=== PATIENT | female | born 1995 | race Two or more races ===

== ENCOUNTER 2025-02-19 15:53 | Observation (INO) | payer OTHER ==
[2025-02-19] MEDS ORDERED: PREN-96 PO (16:26)
--- NOTE | 2025-02-21 15:47 | DVHDS2 ---
Physician Discharge Progress N Final Diagnosis: abd pain 21wks Operations or Procedures: Operations or Procedures sono , Condition on Discharge: Good Disposition: Home Discharge Instructions: Diet: Regular Activity: Light activity Medications: na Follow Up Care: Specialist: 1w Discharge Statement: "Patient was advised to return to the ER or call 911 if any headaches, dizzin ess, shortness of breath, chest pain, abdominal pain, bleeding, fevers, or worsening of medical condition. Patient was counseled about treatment plan, medications, possible side effects, patientverbalized understanding. All questions were answered to the best of my ability. This discharge took greater then 30 minutes in planning, reviewing documentation, counseling the patient, and discussing with other team members." Visit Coding OBGYN Date of Service: Feb 19, 2025 Billing Provider: NOREEN STROUD DO FLOOR WORKER WELL SERVICE Common Visit Codes: [id number] OBS CARE (HIGH) FLOOR WORKER WELL SERVICE Procedure Codes: 48449-32- NON-STRESS TEST NOREEN STROUD DO Feb 21, 2025 15:47
== END 2025-02-19 16:51 | disposition home or self-care (01) ==
LOC: LDRP 15:53 → UNDOADMOB 15:53 → LDRP 16:04 → UNDODISOB 16:51
PROVIDERS: ADMIT Obstetrics & Gynecology; ATTEND Obstetrics & Gynecology
DX: O26.892 Other specified pregnancy related conditions, second trimester (principal); R10.30 Lower abdominal pain, unspecified; Z3A.26 26 weeks gestation of pregnancy; Z98.890 Other specified postprocedural states
CPT/HCPCS: 81002; 94760; G0378

== ENCOUNTER 2025-03-24 10:58 | Observation (INO) | payer OTHER ==
[~2025-03-24] VITALS: Ht 154.9 cm; Wt 70.0 kg
[~2025-03-24 10:58] MED LIST: PREN-96 PO
[2025-03-24] MEDS: LACTATED RINGER'S 1,000 ML IV ONE (12:56)
[2025-03-24] MEDS: TERBUTALINE SULFATE 1 MG/ML 1ML VIAL SC SCH (12:57)
--- NOTE | 2025-03-24 14:55 | DVHDS2 ---
Physician Discharge Progress N Final Diagnosis: Threatened labor abd pain Operations or Procedures: Operations or Procedures NST Commentary: Commentary Cervical exam cervix closed [place]: irreg contractions, resolved w/ Hydration and Terbutaline SQ inject Condition on Discharge: Stable Disposition: Home Discharge Instructions: Diet: Regular Activity: No Restrictions, As Tolerated Medications: N/A Follow Up Care: Discharge Statement: "Patient was advised to return to the ER or call 911 if any headaches, dizziness, shortness of breath, chest pain, abdominal pain, bleeding, fevers, or worsening of medical condition. Patient was counseled about treatment plan, medications, possible side effects, patientverbalized understanding. All questions were answered to the best of my ability. This discharge took greater then 30 minutes in planning, reviewing documentat ion, counseling the patient, and discussing with other team members." Visit Coding OBGYN Date of Service: Mar 24, 2025 Billing Provider: AMY CASTILLO DO FLAG CAR DRIVER Common Visit Codes: 92985-PVP/[id number] SAME DATE (HIGH) FLAG CAR DRIVER Procedure Codes: 78624-86- NON-STRESS TEST AMY CASTILLO DO Mar 24, 2025 14:55
== END 2025-03-24 14:44 | disposition home or self-care (01) ==
LOC: LDRP 10:58
PROVIDERS: ADMIT Obstetrics & Gynecology; ATTEND Obstetrics & Gynecology
DX: O62.9 Abnormality of forces of labor, unspecified (principal); Z3A.31 31 weeks gestation of pregnancy; Z79.899 Other long term (current) drug therapy; Z98.890 Other specified postprocedural states
CPT/HCPCS: 59025; 81002; 94760; 96360; 96361; 96372; G0378; J3105

== ENCOUNTER 2025-04-11 10:10 | Observation (INO) | payer OTHER ==
--- NOTE | 2025-04-11 11:12 | DVH ---
BIOPHYSICAL PROFILE HISTORY: PIH Comparison Study: US OB ULTRASOUND COMP GTR 14 WKS on DOS: 01/16/25 TECHNIQUE: Multiple real-time grayscale sonographic images through the gravid uterus of the fetus with duplex Doppler color flow and M-mode spectral analysis FINDINGS: BIOPHYSICAL PROFILE: breathing score: 2 movement score: 2 tone score: 2 Quantitative JOSE JUAN score: 2 (JOSE JUAN: 11.75 Cm.) Total score: 8 The cervix is not visualized Single live fetus in cephalic presentation. heart rate 158 beats per minute. Grade 2, anterior placenta without previa or abruption IMPRESSION: Biophysical profile score: 8
[2025-04-11 12:17] LABS: Hematocrit 38.3 % (36.0-46.0); Hemoglobin 13.4 g/dL (12.2-16.2); Mean Corpuscular Hemoglobin 31.0 pg (28.0-32.0); Mean Corpuscular Volume 88.2 fL (80.0-100.0); Nucleated Red Blood Cells % 0.1 %
[2025-04-11 12:18] LABS: Urine Protein, UAD Negative (Negative)
[2025-04-11 12:29] LABS: Alanine Aminotransferase 12 U/L (7-40); Albumin 3.8 g/dL (3.2-4.8); Anion Gap 10 (5-15); Bilirubin, Total 0.4 mg/dL (0.2-1.0); Calcium 8.9 mg/dL (8.7-10.4); Carbon Dioxide 22 mmol/L (20-31); Chloride 106 mmol/L (98-107); Glucose 86 mg/dL (74-106); Potassium 3.5 mmol/L (3.5-5.1); Sodium 138 mmol/L (136-145); Total Protein 6.6 g/dL (5.7-8.2); Uric Acid 4.3 mg/dL (3.1-7.8)
[2025-04-11 12:30] LABS: Alkaline Phosphatase 151 U/L (46-116); BUN/Creatinine Ratio 13.2 (10.0-20.0); Blood Urea Nitrogen < 5 mg/dL (9-23)
[2025-04-11 12:31] LABS: INR 0.92 (0.9-1.15); Partial Thromboplastin Time 27.3 SEC (24.5-34.5); Prothrombin Time 9.8 sec (9.3-11.8)
[2025-04-11 12:34] LABS: Protein, Urine < 6.0 mg/dL (1-14)
--- NOTE | 2025-04-11 15:30 | DVHDS2 ---
Physician Discharge Progress N Final Diagnosis: pih 34wks Operations or Procedures: Operations or Procedures nst reactive reviwed,sono Condition on Discharge: Good Disposition: Home Discharge Instructions: Diet: Regular Activity: No Restrictions, As Tolerated Follow Up/Referral: as scheduled Medications: na Follow Up Care: Specialist: 3d Discharge Statement: "Patient was advised to return to the ER or call 911 if any headaches, dizziness, shortness of breath, chest pain, abdominal pain, bleeding, fevers, or worsening of medical condition. Patient was counseled about treatment plan, medications, possible side effects, patientverbalized understanding. All questions were answered to the best of my ability. This discharge took greater then 30 minutes in planning, reviewing documentation, counseling the patient, and discussing with other team members." Visit Coding OBGYN Date of Service: Apr 11, 2025 Billing Provider: NOREEN STROUD DO FULFILLMENT COORDINATOR Common Visit Codes: [id number] OBS CARE (HIGH) FULFILLMENT COORDINATOR Procedure Codes: 88584-39- NON-STRESS TEST NOREEN STROUD DO Apr 11, 2025 15:30
== END 2025-04-11 11:49 | disposition home or self-care (01) ==
LOC: UNDOADMOB 10:10 → LDRP 10:10
PROVIDERS: ADMIT Obstetrics & Gynecology; ATTEND Obstetrics & Gynecology
DX: O13.3 Gestational [pregnancy-induced] hypertension without significant proteinuria, third trimester (principal); Z3A.34 34 weeks gestation of pregnancy; Z98.890 Other specified postprocedural states
CPT/HCPCS: 36415; 76818; 80053; 81001; 81002; 82570; 84156; 84550; 85025; 85610; 85730; 94760; G0378; 59025; 76819

== ENCOUNTER 2025-05-15 08:48 | Inpatient (IN) | payer OTHER ==
[~2025-05-15] VITALS: Ht 154.9 cm; Wt 76.7 kg
[2025-05-15] MEDS: LACTATED RINGER'S 1,000 ML IV ONE (09:52)
--- NOTE | 2025-05-15 09:53 | DVH ---
PROCEDURE: US BIOPHYSICAL PROFILE 05/15/2025 09:05 AM INDICATION: low JOSE JUAN COMPARISON: US BIOPHYSICAL PROFILE on DOS: 04/11/25 TECHNIQUE: Sonogram of gravid uterus utilizing grayscale and color techniques. FINDINGS: Single living intrauterine gestation. Presentation: Cephalic Placenta: Anterior heart rate: 140 bpm JOSE JUAN: 4.9 cm, DVP: 2 cm Maternal cervix: Not visualized Biophysical Profile: breathing score: 2 movement score: 2 tone: 2 Quantitative JOSE JUAN score: 2 Total score: 8/8 IMPRESSION: 1. Single living as above. 2. Biophysical profile score: 8/8. 3. Oligohydramnios.
[2025-05-15] MEDS ORDERED: BUTORPHANOL TARTRATE 2 MG/1 ML VIAL IV PRN ×2 (11:00)
[2025-05-15] MEDS ORDERED: LIDOCAINE 2%HCL (LOCAL ANESTH.) INJ 20ML MDV IJ PRN (11:00)
[2025-05-15 11:30] LABS: Hematocrit 43.6 % (36.0-46.0); Hemoglobin 15.1 g/dL (12.2-16.2); Mean Corpuscular Hemoglobin 31.2 pg (28.0-32.0); Mean Corpuscular Volume 89.6 fL (80.0-100.0); Nucleated Red Blood Cells % 0.1 %
[2025-05-15 11:49] LABS: Alanine Aminotransferase 13 U/L (7-40); Albumin 4.1 g/dL (3.2-4.8); Anion Gap 9 (5-15); Calcium 9.3 mg/dL (8.7-10.4); Carbon Dioxide 22 mmol/L (20-31); Chloride 105 mmol/L (98-107); INR 0.9 (0.9-1.15); Partial Thromboplastin Time 27.6 SEC (24.5-34.5); Prothrombin Time 9.6 sec (9.3-11.8); Sodium 136 mmol/L (136-145); Total Protein 7.1 g/dL (5.7-8.2)
[2025-05-15 11:50] LABS: Bilirubin, Total 0.5 mg/dL (0.2-1.0)
[2025-05-15 11:52] LABS: Alkaline Phosphatase 221 U/L (46-116); BUN/Creatinine Ratio 9.3 (10.0-20.0); Blood Urea Nitrogen < 5 mg/dL (9-23); Glucose 73 mg/dL (74-106); Potassium 3.5 mmol/L (3.5-5.1)
[2025-05-15 12:22] LABS: Urine Protein, UAD TRACE (Negative)
[2025-05-15 12:27] LABS: Amphetamine Screen, Urine Neg (NEGATIVE); Barbiturate Scree,Urine Neg (NEGATIVE); Benzodiazephine Screen, Urine Neg (NEGATIVE); Cannabinoid Screen, Urine Neg (NEGATIVE); Cocaine Screen, Urine Neg (NEGATIVE); Opiate Scree,Urine Neg (NEGATIVE); Phencyclidine Screen, Urine Neg (NEGATIVE)
[2025-05-15] MEDS: PHISODERM TOP SOLN 240ML BTL TOP PRN (12:30)
[2025-05-15] MEDS: WITCH HAZEL-GLYCERIN PAD TOP PRN (12:30)
[2025-05-15] MEDS: DERMOPLAST 60ML BOTTLE TOP PRN (12:30)
--- NOTE | 2025-05-15 15:09 | DVHHP2 ---
OB CC & HPI Date Date of Admission: May 15, 2025 Patient Identification: : 2 Para: 0 EDC: May 22, 2025 EGA: 39wks Chief Complaints: Reason for admission: induction of labor Indication for : other (oligo ) Admission Nurse Assessment Rev: No History of Present Complaints pt is admitted for iol due to oligoafi of 5cm Past Medical History Cardiac: No pertinent Hx Pulmonary: No pertinent Hx Central Nervous System: No pertinent Hx GI: No pertinent Hx Hemotology/Oncology: No pertinent Hx Hepatobiliary: No pertinent Hx Psychiatric: No pertinent Hx Musculoskeletal: No pertinent Hx Rheumotologic: No pertinent Hx Infectious Disease: No peritnent Hx ENT: No pertinent Hx Renal/: No pertinent Hx Endocrine: No pertinent Hx Dermatology: No pertinent Hx Past Surgical History: No pertinent Hx OB History OB History Care: Good Care Ultrasounds: Normal mid trimester US Obstetrical Complications: None Medical Complications: None Allergies: Coded Allergies: NO KNOWN ALLERGIES (Unverified , 03/24/25) Home Meds Reported Medications Vit W/ Ferrous Fumara ( One Daily) Daily Tab, 1 TAB PO DAILY, #90 TAB 3 Refills 02/19/25 Current Medications Current Medications Medications (Trade) Dose Ordered Sig/Dolly Route PRN Reason Start Time Stop Time Status Last Admin Lactated Ringer's 1,000 ml @ 125 mls/hr Q8H IV 05/15/25 11:00 Quinn Soni (Tucks) 1 pad PRN PRN TOP PERINEAL AREA DISCOMFORT 05/15/25 11:00 05/15/25 12:30 Sodium Lauryl Sulfate (Phisoderm) 240 ml PRN PRN TOP PERINEAL AREA DISCOMFORT 05/15/25 11:00 05/15/25 12:30 Benzocaine (Dermoplast) 1 applic PRN PRN TOP PERINEAL AREA DISCOMFORT 05/15/25 11:00 05/15/25 12:30 Butorphanol Tartrate (Stadol Injection) 1 mg Q4HPRN PRN IV MODERATE PAIN (4-6 PAIN SCALE) 05/15/25 11:00 Butorphanol Tartrate (Stadol Injection) 2 mg Q4HPRN PRN IV SEVERE PAIN (7-10 PAIN SCALE) 05/15/25 11:00 Lidocaine HCl (Xylocaine) 20 ml ONCE PRN IJ PERINEAL AREA DISCOMFORT 05/15/25 11:00 Misoprostol (Cytotec) 50 mcg Q4HPRN PRN PO CERVICAL RIPENING 05/15/25 12:15 05/15/25 12:29 Family & Social History Family/Social History Blood Type: Unknown Rubella: unknown RPR/VDRL: Unknown GBS Status: Unknown HBsAG: Unknown Review of Systems Constitutional: No symptom reported Ears, Nose, & Throat: No symptom reported Eyes: No symptom reported Pulmonary/Respiratory: No symptom reported Cardiovascular: No symptom reported Gastrointestinal: No symptom reported Genitourinary: No symptom reported Musculoskeletal: No symptom reported Skin: No symptom reported Psychiatric: No symptom reported Endocrine: No symptom reported Hemotologic/Lymphatic: No symptom reported OB Admission Exam Physical Exam HEENT: TMs Normal, Fontanelles Normal, Nasal Mucosa Normal, Eyes non-injected, Oropharynx Normal, PERRLA, Moist Membranes, EOMI Heart: Rhythm Normal Lungs: Clear Abdomen: Non tender Extremities: Normal Reflexes: Normal Cervical Dilatation: Fingertip Effacement: 25% Station: -3 Membranes: Intact Heart Rate: 130's Accelerations: Accelerations Present Decelerations: No Decelerations Short Term Variability: Present Scroll Saw Operator Variability: Average (6-25) Contractions on Admission: >10 Minutes Apart Intensity: Mild OB Plan Plan Admitting Diagnosis: IOL for Oligo Plan: Induction Induction Methd: Misoprostol protocol Other Plan: informed consent obtained Visit Coding OBGYN Date of Service: May 15, 2025 Billing Provider: NOREEN STROUD DO MANAGER AGENCY Common Visit Codes: [id number] OBS CARE (HIGH) MANAGER AGENCY Procedure Codes: 61263-74- NON-STRESS TEST NOREEN STROUD DO May 15, 2025 15:09
--- NOTE | 2025-05-15 20:51 | DVHPN2 ---
OB Labor Progress Note Date and Time Seen Date Seen: May 15, 2025 Time Seen: 17:15 Subjective Subjective Comment 30yo IUP@39.0 wks. Pt Endorses intermittent mild contractions. No new complaints, all questions answered, denies pain, headache, vision changes and RUQ pain. Objective Vital Signs VSS See arie JUAREZW in office 6lbs 5oz per pt Monitoring Method Monitoring Method: External Heart Rate Heart Rate Baseline: 130 Heart Rate Variability: Moderate Presence of FHR Accelerations: Yes Presence of FHR Decelerations: No Changes in Trends of Patterns: No Are all 5 Components of the FH: Yes Contractions Contractions Frequency: Occasional Duration of Contraction: 60 Contractions Intensity: Mild Contractions Resting Tone: Relaxed Membranes Membranes: Intact Vaginal Exam Vag Exam Deferred: Yes Medications Medications - Pitocin: No Medication - Epidural: No Medication - Other s/p 2 doses of cytotec Lab Results Lab Results Current Medications Medications (Trade) Dose Ordered Sig/Dolly Start Time Stop Time Status Last Admin Dose Admin Lactated Ringer's 1,000 ml @ 1,000 mls/hr Q1H ONCE 05/15/25 09:00 05/15/25 09:59 DC 05/15/25 09:52 1,000 MLS/HR Lactated Ringer's 1,000 ml @ 125 mls/hr Q8H 05/15/25 11:00 05/15/25 21:16 125 MLS/HR Quinn Soni (Tucks) 1 pad PRN PRN 05/15/25 11:00 05/15/25 12:30 1 PAD Sodium Lauryl Sulfate (Phisoderm) 240 ml PRN PRN 05/15/25 11:00 05/15/25 12:30 240 ML Benzocaine (Dermoplast) 1 applic PRN PRN 05/15/25 11:00 05/15/25 12:30 1 APPLIC Butorphanol Tartrate (Stadol Injection) 1 mg Q4HPRN PRN 05/15/25 11:00 Butorphanol Tartrate (Stadol Injection) 2 mg Q4HPRN PRN 05/15/25 11:00 Lidocaine HCl (Xylocaine) 20 ml ONCE PRN 05/15/25 11:00 Oxytocin 500 ml @ 999 mls/hr Q31M ONCE 05/15/25 11:00 05/15/25 11:30 DC Oxytocin 500 ml @ 125 mls/hr Q4H ONCE 05/15/25 11:30 05/15/25 15:29 DC Misoprostol (Cytotec) 50 mcg Q4HPRN PRN 05/15/25 12:15 05/15/25 21:15 50 MCG Laboratory Tests Test 05/15/25 11:06 05/15/25 11:00 Range/Units White Blood Count 9.9 4.4-10.8 10^3/uL Red Blood Count 4.86 4.0-5.20 10^6/uL Hemoglobin 15.1 12.2-16.2 g/dL Hematocrit 43.6 36.0-46.0 % Mean Corpuscular Volume 89.6 80.0-100.0 fL Mean Corpuscular Hemoglobin 31.2 28.0-32.0 pg Mean Corpuscular Hemoglobin Concent 34.8 32.0-36.0 g/dL Red Cell Distribution Width 14.3 11.8-14.3 % Platelet Count 131 L 140-450 10^3/uL Mean Platelet Volume 9.7 6.9-10.8 fL Neutrophils (%) (Auto) 71.0 37.0-80.0 % Lymphocytes (%) (Auto) 21.6 10.0-50.0 % Monocytes (%) (Auto) 6.6 0.0-12.0 % Eosinophils (%) (Auto) 0.3 0.0-7.0 % Basophils (%) (Auto) 0.5 0.0-2.0 % Neutrophils # (Auto) 7.0 1.6-8.6 10 ^3/uL Lymphocytes # (Auto) 2.1 0.4-5.4 10 ^3/uL Monocytes # (Auto) 0.6 0-1.3 10 ^3/uL Eosinophils # (Auto) 0 0-0.8 10 ^3/uL Basophils # (Auto) 0.1 0-0.2 10 ^3/uL Nucleated Red Blood Cells 0.1 % Prothrombin Time 9.6 9.3-11.8 sec Prothrombin Time INR 0.90 0.9-1.15 Activated Partial Thromboplast Time 27.6 24.5-34.5 SEC Sodium Level 136 136-145 mmol/L Potassium Level 3.5 3.5-5.1 mmol/L Chloride Level 105 98-107 mmol/L Carbon Dioxide Level 22 20-31 mmol/L Anion Gap 9 5-15 Blood Urea Nitrogen < 5 L 9-23 mg/dL Creatinine 0.54 L 0.550-1.02 mg/dL Glomerular Filtration Rate Calc 128 >90 mL/min BUN/Creatinine Ratio 9.3 L 10.0-20.0 Serum Glucose 73 L 74-106 mg/dL Calcium Level 9.3 8.7-10.4 mg/dL Total Bilirubin 0.5 0.2-1.0 mg/dL Aspartate Amino Transferase (AST) 18 13-40 U/L Alanine Aminotransferase (ALT) 13 7-40 U/L Alkaline Phosphatase 221 H 46-116 U/L Total Protein 7.1 5.7-8.2 g/dL Albumin 4.1 3.2-4.8 g/dL Treponema pallidum Antibody Non-reactive Negative Hepatitis C Antibody Pending Urine Color Yellow Yellow Urine Clarity Turbid H Clear Urine pH 5.5 5.0-9.0 Urine Specific [place] 1.024 1.001-1.035 Urine Protein Trace H Negative Urine Ketones Negative Negative Urine Blood Negative Negative /uL Urine Nitrite Negative Negative Urine Bilirubin Negative Negative Urine Urobilinogen Normal Negative mg/dL Urine Leukocyte Esterase 3+ Negative /uL Urine RBC 8 0 - 4 /hpf Urine Microscopic WBC 61 H 0-5 /HPF Urine Squamous Epithelial Cells Few <5 /hpf Urine Bacteria Few H None Seen /hpf Urine Mucus Few None Seen Urine Glucose Normal Normal mg/dL Urine Opiates Screen Neg NEGATIVE Urine Fentanyl Screen Neg NEGATIVE Urine Barbiturates Screen Neg NEGATIVE Urine Phencyclidine Screen Neg NEGATIVE Urine Amphetamines Screen Neg NEGATIVE Urine Benzodiazepines Screen Neg NEGATIVE Urine Cocaine Screen Neg NEGATIVE Urine Cannabinoids Screen Neg NEGATIVE Assessment Assessment A: 30yo IUP@39.0wks Induction of Labor for oligohydramnios Category I EFM Intact Membranes GBS negative Plan Plan P: Continue with PO cytotec monitoring per order Pain mgmt PRN Frequent position changes in and out of bed encouraged Limit SVE unless necessary Intrauterine resuscitation PRN Anticipate Plan discussed with: Patient, Spouse Visit Coding OBGYN Date of Service: May 15, 2025 Billing Provider: MUKUND BLAKE CNM AFTER SCHOOL DRIVER Common Visit Codes: [id number] INP/OBS CARE(MOD) AFTER SCHOOL DRIVER Procedure Codes: 77418-27- NON-STRESS TEST JAMES DICKSON STUDENTMDW May 15, 2025 20:51
[2025-05-15] MEDS: LACTATED RINGER'S 1,000 ML IV SCH (21:16)
--- NOTE | 2025-05-15 21:41 | DVHPN2 ---
OB Labor Progress Note Date and Time Seen Date Seen: May 15, 2025 Time Seen: 20:45 Subjective Patient reports: No new complaints Subjective Comment 30yo IUP@39wks. Pt endorses intermittent mild contractions. Wants an epidural later. Pt consents to cervical balloon after discussion. Objective Vital Signs VSS see cpn Monitoring Method Monitoring Method: Internal, External Heart Rate Heart Rate Baseline: 140 Heart Rate Variability: Moderate Presence of FHR Accelerations: Yes Presence of FHR Decelerations: No Changes in Trends of Patterns: No Are all 5 Components of the FH: Yes Contractions Contractions Frequency: Other (Constant) Duration of Contraction: 60 Contractions Intensity: Mild Contractions Resting Tone: Relaxed Membranes Membranes: Intact Vaginal Exam Vag Exam Deferred: No (FT/50/-3, internal os closed, did not attempt CRB) Vaginal Exam Presentation: VTX Vaginal Exam Show: None Medications Medications - Pitocin: No Medication - Epidural: No Medication - Other s/p 2 doses of PO cytotec Lab Results Lab Results Current Medications Medications (Trade) Dose Ordered Sig/Dolly Start Time Stop Time Status Last Admin Dose Admin Lactated Ringer's 1,000 ml @ 1,000 mls/hr Q1H ONCE 05/15/25 09:00 05/15/25 09:59 DC 05/15/25 09:52 1,000 MLS/HR Lactated Ringer's 1,000 ml @ 125 mls/hr Q8H 05/15/25 11:00 05/15/25 21:16 125 MLS/HR Quinn Soni (Tucks) 1 pad PRN PRN 05/15/25 11:00 05/15/25 12:30 1 PAD Sodium Lauryl Sulfate (Phisoderm) 240 ml PRN PRN 05/15/25 11:00 05/15/25 12:30 240 ML Benzocaine (Dermoplast) 1 applic PRN PRN 05/15/25 11:00 05/15/25 12:30 1 APPLIC Butorphanol Tartrate (Stadol Injection) 1 mg Q4HPRN PRN 05/15/25 11:00 Butorphanol Tartrate (Stadol Injection) 2 mg Q4HPRN PRN 05/15/25 11:00 Lidocaine HCl (Xylocaine) 20 ml ONCE PRN 05/15/25 11:00 Oxytocin 500 ml @ 999 mls/hr Q31M ONCE 05/15/25 11:00 05/15/25 11:30 DC Oxytocin 500 ml @ 125 mls/hr Q4H ONCE 05/15/25 11:30 05/15/25 15:29 DC Misoprostol (Cytotec) 50 mcg Q4HPRN PRN 05/15/25 12:15 05/15/25 21:15 50 MCG Laboratory Tests Test 05/15/25 11:06 05/15/25 11:00 Range/Units White Blood Count 9.9 4.4-10.8 10^3/uL Red Blood Count 4.86 4.0-5.20 10^6/uL Hemoglobin 15.1 12.2-16.2 g/dL Hematocrit 43.6 36.0-46.0 % Mean Corpuscular Volume 89.6 80.0-100.0 fL Mean Corpuscular Hemoglobin 31.2 28.0-32.0 pg Mean Corpuscular Hemoglobin Concent 34.8 32.0-36.0 g/dL Red Cell Distribution Width 14.3 11.8-14.3 % Platelet Count 131 L 140-450 10^3/uL Mean Platelet Volume 9.7 6.9-10.8 fL Neutrophils (%) (Auto) 71.0 37.0-80.0 % Lymphocytes (%) (Auto) 21.6 10.0-50.0 % Monocytes (%) (Auto) 6.6 0.0-12.0 % Eosinophils (%) (Auto) 0.3 0.0-7.0 % Basophils (%) (Auto) 0.5 0.0-2.0 % Neutrophils # (Auto) 7.0 1.6-8.6 10 ^3/uL Lymphocytes # (Auto) 2.1 0.4-5.4 10 ^3/uL Monocytes # (Auto) 0.6 0-1.3 10 ^3/uL Eosinophils # (Auto) 0 0-0.8 10 ^3/uL Basophils # (Auto) 0.1 0-0.2 10 ^3/uL Nucleated Red Blood Cells 0.1 % Prothrombin Time 9.6 9.3-11.8 sec Prothrombin Time INR 0.90 0.9-1.15 Activated Partial Thromboplast Time 27.6 24.5-34.5 SEC Sodium Level 136 136-145 mmol/L Potassium Level 3.5 3.5-5.1 mmol/L Chloride Level 105 98-107 mmol/L Carbon Dioxide Level 22 20-31 mmol/L Anion Gap 9 5-15 Blood Urea Nitrogen < 5 L 9-23 mg/dL Creatinine 0.54 L 0.550-1.02 mg/dL Glomerular Filtration Rate Calc 128 >90 mL/min BUN/Creatinine Ratio 9.3 L 10.0-20.0 Serum Glucose 73 L 74-106 mg/dL Calcium Level 9.3 8.7-10.4 mg/dL Total Bilirubin 0.5 0.2-1.0 mg/dL Aspartate Amino Transferase (AST) 18 13-40 U/L Alanine Aminotransferase (ALT) 13 7-40 U/L Alkaline Phosphatase 221 H 46-116 U/L Total Protein 7.1 5.7-8.2 g/dL Albumin 4.1 3.2-4.8 g/dL Treponema pallidum Antibody Non-reactive Negative Hepatitis C Antibody Pending Urine Color Yellow Yellow Urine Clarity Turbid H Clear Urine pH 5.5 5.0-9.0 Urine Specific [place] 1.024 1.001-1.035 Urine Protein Trace H Negative Urine Ketones Negative Negative Urine Blood Negative Negative /uL Urine Nitrite Negative Negative Urine Bilirubin Negative Negative Urine Urobilinogen Normal Negative mg/dL Urine Leukocyte Esterase 3+ Negative /uL Urine RBC 8 0 - 4 /hpf Urine Microscopic WBC 61 H 0-5 /HPF Urine Squamous Epithelial Cells Few <5 /hpf Urine Bacteria Few H None Seen /hpf Urine Mucus Few None Seen Urine Glucose Normal Normal mg/dL Urine Opiates Screen Neg NEGATIVE Urine Fentanyl Screen Neg NEGATIVE Urine Barbiturates Screen Neg NEGATIVE Urine Phencyclidine Screen Neg NEGATIVE Urine Amphetamines Screen Neg NEGATIVE Urine Benzodiazepines Screen Neg NEGATIVE Urine Cocaine Screen Neg NEGATIVE Urine Cannabinoids Screen Neg NEGATIVE Consulting with Consulting with: None Assessment Assessment 30yo IUP@39.0wks Induction of Labor for oligohydramnios Category I EFM Intact Membranes GBS negative Plan Plan Discussed potential of placing cervical balloon, however cervix was unfavorable. Discussed continuing cytotec after contractions space out. Pt agrees with POC monitoring per order Pain mgmt PRN Frequent position changes in and out of bed encouraged Limit SVE unless necessary Intrauterine resuscitation PRN Anticipate Plan discussed with: Patient, Spouse Visit Coding OBGYN Date of Service: May 15, 2025 Billing Provider: MUKUND BLAKE CNM LOG ROPER Common Visit Codes: [id number] INP/OBS CARE(MOD) JAMES DICKSONMDW May 15, 2025 21:41
--- NOTE | 2025-05-16 06:02 | DVHPN2 ---
OB Labor Progress Note Date and Time Seen Date Seen: May 16, 2025 Time Seen: 05:30 Subjective Patient reports: No new complaints Subjective Comment Subjective Comment 30yo IUP@39.1wks. Pt endorses intermittent mild contractions. Wants an epidural later. Pt consents to cervical balloon after discussion and VE. Objective Vital Signs VSS see cpn Monitoring Method Monitoring Method: External Heart Rate Heart Rate Baseline: 130 Heart Rate Variability: Moderate Presence of FHR Accelerations: Yes Presence of FHR Decelerations: No Changes in Trends of Patterns: No Are all 5 Components of the FH: Yes Contractions Contractions Frequency: Occasional Duration of Contraction: 50 Contractions Intensity: Mild Contractions Resting Tone: Relaxed Membranes Membranes: Intact Vaginal Exam Vag Exam Deferred: No Vaginal Exam Dilation: 1 (Cervical Ripening Balloon placed 30mls) Vaginal Exam Effacement: 40 Vaginal Exam Station: -3 Vaginal Exam Presentation: VTX Vaginal Exam Show: None Medications Medications - Pitocin: No Medication - Epidural: No Medication - Other see med sheet Lab Results Lab Results Current Medications Medications (Trade) Dose Ordered Sig/Dolly Start Time Stop Time Status Last Admin Dose Admin Lactated Ringer's 1,000 ml @ 1,000 mls/hr Q1H ONCE 05/15/25 09:00 05/15/25 09:59 DC 05/15/25 09:52 1,000 MLS/HR Lactated Ringer's 1,000 ml @ 125 mls/hr Q8H 05/15/25 11:00 05/15/25 21:16 125 MLS/HR Quinn Soni (Jaredckrigo) 1 pad PRN PRN 05/15/25 11:00 05/15/25 12:30 1 PAD Sodium Lauryl Sulfate (Phisoderm) 240 ml PRN PRN 05/15/25 11:00 05/15/25 12:30 240 ML Benzocaine (Dermoplast) 1 applic PRN PRN 05/15/25 11:00 05/15/25 12:30 1 APPLIC Butorphanol Tartrate (Stadol Injection) 1 mg Q4HPRN PRN 05/15/25 11:00 Butorphanol Tartrate (Stadol Injection) 2 mg Q4HPRN PRN 05/15/25 11:00 Lidocaine HCl (Xylocaine) 20 ml ONCE PRN 05/15/25 11:00 Oxytocin 500 ml @ 999 mls/hr Q31M ONCE 05/15/25 11:00 05/15/25 11:30 DC Oxytocin 500 ml @ 125 mls/hr Q4H ONCE 05/15/25 11:30 05/15/25 15:29 DC Misoprostol (Cytotec) 50 mcg Q4HPRN PRN 05/15/25 12:15 05/16/25 01:21 50 MCG Laboratory Tests Test 05/15/25 11:06 05/15/25 11:00 Range/Units White Blood Count 9.9 4.4-10.8 10^3/uL Red Blood Count 4.86 4.0-5.20 10^6/uL Hemoglobin 15.1 12.2-16.2 g/dL Hematocrit 43.6 36.0-46.0 % Mean Corpuscular Volume 89.6 80.0-100.0 fL Mean Corpuscular Hemoglobin 31.2 28.0-32.0 pg Mean Corpuscular Hemoglobin Concent 34.8 32.0-36.0 g/dL Red Cell Distribution Width 14.3 11.8-14.3 % Platelet Count 131 L 140-450 10^3/uL Mean Platelet Volume 9.7 6.9-10.8 fL Neutrophils (%) (Auto) 71.0 37.0-80.0 % Lymphocytes (%) (Auto) 21.6 10.0-50.0 % Monocytes (%) (Auto) 6.6 0.0-12.0 % Eosinophils (%) (Auto) 0.3 0.0-7.0 % Basophils (%) (Auto) 0.5 0.0-2.0 % Neutrophils # (Auto) 7.0 1.6-8.6 10 ^3/uL Lymphocytes # (Auto) 2.1 0.4-5.4 10 ^3/uL Monocytes # (Auto) 0.6 0-1.3 10 ^3/uL Eosinophils # (Auto) 0 0-0.8 10 ^3/uL Basophils # (Auto) 0.1 0-0.2 10 ^3/uL Nucleated Red Blood Cells 0.1 % Prothrombin Time 9.6 9.3-11.8 sec Prothrombin Time INR 0.90 0.9-1.15 Activated Partial Thromboplast Time 27.6 24.5-34.5 SEC Sodium Level 136 136-145 mmol/L Potassium Level 3.5 3.5-5.1 mmol/L Chloride Level 105 98-107 mmol/L Carbon Dioxide Level 22 20-31 mmol/L Anion Gap 9 5-15 Blood Urea Nitrogen < 5 L 9-23 mg/dL Creatinine 0.54 L 0.550-1.02 mg/dL Glomerular Filtration Rate Calc 128 >90 mL/min BUN/Creatinine Ratio 9.3 L 10.0-20.0 Serum Glucose 73 L 74-106 mg/dL Calcium Level 9.3 8.7-10.4 mg/dL Total Bilirubin 0.5 0.2-1.0 mg/dL Aspartate Amino Transferase (AST) 18 13-40 U/L Alanine Aminotransferase (ALT) 13 7-40 U/L Alkaline Phosphatase 221 H 46-116 U/L Total Protein 7.1 5.7-8.2 g/dL Albumin 4.1 3.2-4.8 g/dL Treponema pallidum Antibody Non-reactive Negative Hepatitis C Antibody Pending Urine Color Yellow Yellow Urine Clarity Turbid H Clear Urine pH 5.5 5.0-9.0 Urine Specific [place] 1.024 1.001-1.035 Urine Protein Trace H Negative Urine Ketones Negative Negative Urine Blood Negative Negative /uL Urine Nitrite Negative Negative Urine Bilirubin Negative Negative Urine Urobilinogen Normal Negative mg/dL Urine Leukocyte Esterase 3+ Negative /uL Urine RBC 8 0 - 4 /hpf Urine Microscopic WBC 61 H 0-5 /HPF Urine Squamous Epithelial Cells Few <5 /hpf Urine Bacteria Few H None Seen /hpf Urine Mucus Few None Seen Urine Glucose Normal Normal mg/dL Urine Opiates Screen Neg NEGATIVE Urine Fentanyl Screen Neg NEGATIVE Urine Barbiturates Screen Neg NEGATIVE Urine Phencyclidine Screen Neg NEGATIVE Urine Amphetamines Screen Neg NEGATIVE Urine Benzodiazepines Screen Neg NEGATIVE Urine Cocaine Screen Neg NEGATIVE Urine Cannabinoids Screen Neg NEGATIVE Consulting with Consulting with: None Assessment Assessment Assessment 30yo IUP@39.0wks Induction of Labor for oligohydramnios Category I EFM Intact Membranes GBS negative Plan Plan Plan Discussed current placement of cervical balloon.. Discussed continuing cytotec after contractions space out. Pt agrees with POC monitoring per order Pain mgmt PRN Frequent position changes in and out of bed encouraged Limit SVE unless necessary Intrauterine resuscitation PRN Anticipate Plan discussed with: Patient, Spouse Visit Coding OBGYN Date of Service: May 16, 2025 Billing Provider: MUKUND BLAKE CNM ASSEMBLER MOLDED [employer]AMES Common Visit Codes: [id number] INP/OBS CARE(MOD) ASSEMBLER [employer]OLDED [employer]AMES Procedure Codes: 92592-86- NON-STRESS TEST JAMES DICKSON STUDENTMDW May 16, 2025 06:02
[2025-05-16] MEDS: fentaNYL CITRATE 100 MCG/2 ML VL ONE (07:11)
[2025-05-16] MEDS ORDERED: NALOXONE HCL 0.4 MG/ML VIAL IV ONE (07:30)
--- NOTE | 2025-05-16 07:55 | DVHPN2 ---
Chief Complaints Patient reports: No new complaints Nursing reports: No new complaints Objective Medications Current Medications Medications (Trade) Dose Ordered Sig/Dolly Route PRN Reason Start Time Stop Time Status Last Admin Benzocaine (Dermoplast) 1 applic PRN PRN TOP PERINEAL AREA DISCOMFORT 05/15/25 11:00 05/15/25 12:30 Butorphanol Tartrate (Stadol Injection) 1 mg Q4HPRN PRN IV MODERATE PAIN (4-6 PAIN SCALE) 05/15/25 11:00 Butorphanol Tartrate (Stadol Injection) 2 mg Q4HPRN PRN IV SEVERE PAIN (7-10 PAIN SCALE) 05/15/25 11:00 Lactated Ringer's 1,000 ml @ 125 mls/hr Q8H IV 05/15/25 11:00 05/15/25 21:16 Lidocaine HCl (Xylocaine) 20 ml ONCE PRN IJ PERINEAL AREA DISCOMFORT 05/15/25 11:00 Misoprostol (Cytotec) 50 mcg Q4HPRN PRN PO CERVICAL RIPENING 05/15/25 12:15 05/16/25 01:21 Sodium Lauryl Sulfate (Phisoderm) 240 ml PRN PRN TOP PERINEAL AREA DISCOMFORT 05/15/25 11:00 05/15/25 12:30 Witch Nae (Tucks) 1 pad PRN PRN TOP PERINEAL AREA DISCOMFORT 05/15/25 11:00 05/15/25 12:30 Others ve-1cm/40/-2 Studies Laboratory Tests 05/15/25 11:06 Test 05/15/25 11:06 Range/Units Serum Glucose 73 L 74-106 mg/dL Ass/Plan Assessment iol for oligo Plan rec cytotec garcia placed Visit Coding OBGYN Date of Service: May 16, 2025 Billing Provider: NOREEN STROUD DO TRANSACTIONAL PARALEGAL Common Visit Codes: [id number] OBS CARE (HIGH) TRANSACTIONAL PARALEGAL Procedure Codes: 55933-18- NON-STRESS TEST NOREEN STROUD DO May 16, 2025 07:55
--- NOTE | 2025-05-16 07:57 | EPIDURAL ---
Anesthesia Procedural Note - Epidural Informed consent obtained?: Yes Medication Administered: Fentanyl 100 mcg Spinal level of insertion: L3-L4 Test dose of lidocaine & Epine: Negative Infusion started: Yes Start time: 07:05 End time: 10:34 Procedure description Procedure description: 30 y/o Ms. Bernstein [id number], with no pertinent medical history, admitted for induction of labor secondary to oligohydramnios. She is 39 weeks AOG, and now in active labor, desiring PCEA for labor and delivery. Chart reviewed, H&P performed, alternative presented and discussed, informed consent obtained, all questions answered and Ms. Bernstein wishes to proceed with PCEA. Positioned for the procedure and in sitting position. With G18 Touhy, epidural space identified using loss of technique with saline, after area infiltrated with 1% lidocaine. Epidural catheter threaded easily and secured. Test doese negative x 2. Continuous infusion of Ropivacaine 0.2% started. Pain score decreased from 7/10 to 1/10. Ms. Bernstein is comfortable. Delivered by a single live baby girl with APGARs 8 & 9. No complications. Ms. Bernstein is back to baseline. Epidural catheter is pulled with tip intact. No oozing, redness, or swelling around epidural area. Ms. Bernstein is able to ambulate on her own and fleming with her . Total epidural face to face time: 704 - 075 Total epidural time: 07 - 1034 (05/17/2025). BERT MOSQUERA MD May 16, 2025 07:57
--- NOTE | 2025-05-16 12:18 | DVHPN2 ---
Chief Complaints Patient reports: No new complaints Nursing reports: No new complaints Objective Others jose hancock in cx Studies Laboratory Tests 05/15/25 11:06 Test 05/15/25 11:06 Range/Units Serum Glucose 73 L 74-106 mg/dL Ass/Plan Assessment iol for oligo Plan rec epidural supportive care Visit Coding OBGYN Date of Service: May 16, 2025 Billing Provider: NOREEN STROUD DO SPIRAL WEAVER Common Visit Codes: [id number] OBS CARE (HIGH) SPIRAL WEAVER Procedure Codes: 29125-96- NON-STRESS TEST NOREEN STROUD DO May 16, 2025 12:18
[2025-05-16] MEDS: ROPIVACAINE HCL 100 ML ONE ×2 (16:14→16:17)
[2025-05-16] MEDS: fentaNYL CITRATE 100 MCG/2 ML VL IV ONE (16:22)
[2025-05-16] MEDS ORDERED: LACT. RINGERS/OXYTOCIN 20UNITS 1,000 ML IV ONE (17:50)
--- NOTE | 2025-05-16 17:55 | DVHPN2 ---
Chief Complaints Patient reports: No new complaints Nursing reports: No new complaints Objective Vitals Vital Signs Date Time Temp Pulse Resp B/P (MAP) Pulse Ox O2 Delivery O2 Flow Rate FiO2 05/16/25 16:22 109/55 Others ve-4-5cm/70/-2 Studies Laboratory Tests 05/15/25 11:06 Test 05/15/25 11:06 Range/Units Serum Glucose 73 L 74-106 mg/dL Ass/Plan Assessment iol for oligo Plan garcia balloon is out now ,will start on pitocin Visit Coding OBGYN Date of Service: May 16, 2025 Billing Provider: NOREEN STROUD DO HARD CANDY BATCH MIXER Common Visit Codes: [id number] OBS CARE (HIGH) HARD CANDY BATCH MIXER Procedure Codes: 63891-43- NON-STRESS TEST NOREEN STROUD DO May 16, 2025 17:55
--- NOTE | 2025-05-16 20:44 | DVHPN2 ---
CNM Labor Progress Note Date and Time Seen Date Seen: May 16, 2025 Time Seen: 19:10 Subjective Patient reports: No new complaints Subjective Comment Rounding note 05/16/2025 # [id number] 30 y/o (0,0,0,0,) IUP @ 39 w1d LMP: 08/15/2024 EDC: 05/22/2025 Patient is an IOL for Oligohydramnios JOSE JUAN 05/15/25 4.9 CM Induction of labor Received Misoprostol 50 mcg X4 dose Cervical ripening balloon placed and then D/C Patient received and epidural in latent labor due to pain associated with CRB Current SVE CX 4.5/70/-2 with intact membranes Order for Pitocin induction placed by dr Solomon Objective Vital Signs Vital Signs Date Time Temp Pulse Resp B/P (MAP) Pulse Ox O2 Delivery O2 Flow Rate FiO2 05/16/25 16:22 109/55 Physical Exam: A&O x3, NAD, well groomed. pleasant. Appropriate and normal mood and affect Respiration unlabored Heart and lungs sounds: normal Abdomen: Gravid, non-tender to palpation. Cephalic presentation Extremities: No edema VE: 4.5/70/-2 intact membranes External Heart Rate FHR baseline 135 bpm with moderate variability and accelerations, no deceleration Uterine : soft and non tender to palpation Contractions: every 5 min Monitoring Method Monitoring Method: External Heart Rate Heart Rate Baseline: 135 Heart Rate Variability: Moderate Presence of FHR Accelerations: Yes Presence of FHR Decelerations: No Changes in Trends of Patterns: No Are all 5 Components of the FH: Yes Contractions Contractions Frequency: Occasional Duration of Contraction: 5 Contractions Intensity: Mild Contractions Resting Tone: Relaxed Membranes Membranes: Intact Vaginal Exam Vag Exam Deferred: Yes Medications Medications - Pitocin: No Medication - Epidural: Yes Lab Results Lab Results Vital Signs Date Time Temp Pulse Resp B/P (MAP) Pulse Ox O2 Delivery O2 Flow Rate FiO2 05/16/25 16:22 109/55 Current Medications Medications (Trade) Dose Ordered Sig/Dolly Start Time Stop Time Status Last Admin Dose Admin Lactated Ringer's 1,000 ml @ 1,000 mls/hr Q1H ONCE 05/15/25 09:00 05/15/25 09:59 DC 05/15/25 09:52 1,000 MLS/HR Lactated Ringer's 1,000 ml @ 125 mls/hr Q8H 05/15/25 11:00 05/16/25 16:25 125 MLS/HR Witch Nae (Tucks) 1 pad PRN PRN 05/15/25 11:00 05/15/25 12:30 1 PAD Sodium Lauryl Sulfate (Phisoderm) 240 ml PRN PRN 05/15/25 11:00 05/15/25 12:30 240 ML Benzocaine (Dermoplast) 1 applic PRN PRN 05/15/25 11:00 05/15/25 12:30 1 APPLIC Butorphanol Tartrate (Stadol Injection) 1 mg Q4HPRN PRN 05/15/25 11:00 Butorphanol Tartrate (Stadol Injection) 2 mg Q4HPRN PRN 05/15/25 11:00 Lidocaine HCl (Xylocaine) 20 ml ONCE PRN 05/15/25 11:00 Oxytocin 500 ml @ 999 mls/hr Q31M ONCE 05/15/25 11:00 05/15/25 11:30 DC Oxytocin 500 ml @ 125 mls/hr Q4H ONCE 05/15/25 11:30 05/15/25 15:29 DC Misoprostol (Cytotec) 50 mcg Q4HPRN PRN 05/15/25 12:15 05/16/25 01:21 50 MCG Naloxone HCl (Narcan) 0.2 mg PRN ONCE 05/16/25 07:30 05/16/25 07:32 DC Ephedrine Sulfate (ePHEDrine SULFATE) 10 mg PRN ONCE 05/16/25 07:30 05/16/25 07:32 DC Fentanyl Citrate 100 mcg ONCE ONCE 05/16/25 07:30 05/16/25 07:32 DC 05/16/25 16:22 100 MCG Laboratory Tests Test 05/15/25 11:06 05/15/25 11:00 Range/Units White Blood Count 9.9 4.4-10.8 10^3/uL Red Blood Count 4.86 4.0-5.20 10^6/uL Hemoglobin 15.1 12.2-16.2 g/dL Hematocrit 43.6 36.0-46.0 % Mean Corpuscular Volume 89.6 80.0-100.0 fL Mean Corpuscular Hemoglobin 31.2 28.0-32.0 pg Mean Corpuscular Hemoglobin Concent 34.8 32.0-36.0 g/dL Red Cell Distribution Width 14.3 11.8-14.3 % Platelet Count 131 L 140-450 10^3/uL Mean Platelet Volume 9.7 6.9-10.8 fL Neutrophils (%) (Auto) 71.0 37.0-80.0 % Lymphocytes (%) (Auto) 21.6 10.0-50.0 % Monocytes (%) (Auto) 6.6 0.0-12.0 % Eosinophils (%) (Auto) 0.3 0.0-7.0 % Basophils (%) (Auto) 0.5 0.0-2.0 % Neutrophils # (Auto) 7.0 1.6-8.6 10 ^3/uL Lymphocytes # (Auto) 2.1 0.4-5.4 10 ^3/uL Monocytes # (Auto) 0.6 0-1.3 10 ^3/uL Eosinophils # (Auto) 0 0-0.8 10 ^3/uL Basophils # (Auto) 0.1 0-0.2 10 ^3/uL Nucleated Red Blood Cells 0.1 % Prothrombin Time 9.6 9.3-11.8 sec Prothrombin Time INR 0.90 0.9-1.15 Activated Partial Thromboplast Time 27.6 24.5-34.5 SEC Sodium Level 136 136-145 mmol/L Potassium Level 3.5 3.5-5.1 mmol/L Chloride Level 105 98-107 mmol/L Carbon Dioxide Level 22 20-31 mmol/L Anion Gap 9 5-15 Blood Urea Nitrogen < 5 L 9-23 mg/dL Creatinine 0.54 L 0.550-1.02 mg/dL Glomerular Filtration Rate Calc 128 >90 mL/min BUN/Creatinine Ratio 9.3 L 10.0-20.0 Serum Glucose 73 L 74-106 mg/dL Calcium Level 9.3 8.7-10.4 mg/dL Total Bilirubin 0.5 0.2-1.0 mg/dL Aspartate Amino Transferase (AST) 18 13-40 U/L Alanine Aminotransferase (ALT) 13 7-40 U/L Alkaline Phosphatase 221 H 46-116 U/L Total Protein 7.1 5.7-8.2 g/dL Albumin 4.1 3.2-4.8 g/dL Treponema pallidum Antibody Non-reactive Negative Hepatitis C Antibody Negative Negative Urine Color Yellow Yellow Urine Clarity Turbid H Clear Urine pH 5.5 5.0-9.0 Urine Specific [place] 1.024 1.001-1.035 Urine Protein Trace H Negative Urine Ketones Negative Negative Urine Blood Negative Negative /uL Urine Nitrite Negative Negative Urine Bilirubin Negative Negative Urine Urobilinogen Normal Negative mg/dL Urine Leukocyte Esterase 3+ Negative /uL Urine RBC 8 0 - 4 /hpf Urine Microscopic WBC 61 H 0-5 /HPF Urine Squamous Epithelial Cells Few <5 /hpf Urine Bacteria Few H None Seen /hpf Urine Mucus Few None Seen Urine Glucose Normal Normal mg/dL Urine Opiates Screen Neg NEGATIVE Urine Fentanyl Screen Neg NEGATIVE Urine Barbiturates Screen Neg NEGATIVE Urine Phencyclidine Screen Neg NEGATIVE Urine Amphetamines Screen Neg NEGATIVE Urine Benzodiazepines Screen Neg NEGATIVE Urine Cocaine Screen Neg NEGATIVE Urine Cannabinoids Screen Neg NEGATIVE Assessment Assessment ASSESSMENT: 30 y/o 39w1d IUP by SNP Admitted for IOL for Oligohydramnios Received Misoprostol X4 CRB for Induction method Epidural for pain management Will start pitocin induction as the next method for induction of labor May have clear liquids and jello for diet per Anesthesia verbal orders Rotate the patient in vary positions Will revaluate SVE 8 hours for possible amniotomy Continue with Plan of care Plan Plan Plan of care discussed with Patient and partner / family Process, Risks, benefits, of available management options discussed, Internal monitoring of UCs & FHT, AROM, amnioinfusion etc only when indicated Patient agrees with starting pitocin Informed Consent obtained Consent for possible blood transfusion obtained. All questions answered. Plan discussed with: Patient, Spouse, Other Visit Coding OBGYN Date of Service: May 16, 2025 Billing Provider: ALEX VERNON CNM STRATEGIC PLANNER Common Visit Codes: [id number] [facility]ARE (LOW) [facility]
[2025-05-16] MEDS: LACT. RINGERS/OXYTOCIN 20UNITS 1,000 ML IV SCH (20:46)
--- NOTE | 2025-05-17 00:59 | DVHPN2 ---
CNM Labor Progress Note Date and Time Seen Date Seen: May 17, 2025 Time Seen: 00:30 Subjective Patient reports: Other Subjective Comment Rounding note 05/17/2025 @ 0030 30 y/o (0,0,0,0,) IUP @ 39 w2d LMP: 08/15/2024 EDC: 05/22/2025 Patient is an IOL for Oligohydramnios JOSE JUAN 05/15/25 4.9 CM Induction of labor Received Misoprostol 50 mcg X4 dose Cervical ripening balloon placed and then D/C Patient received and epidural in latent labor due to pain associated with CRB Pitocin Induction started currently 6 mu/min Objective Vital Signs Vital Signs Date Time Temp Pulse Resp B/P (MAP) Pulse Ox O2 Delivery O2 Flow Rate FiO2 05/16/25 16:22 109/55 Physical Exam: A&O x3, NAD, well groomed. pleasant. Appropriate and normal mood and affect Respiration unlabored Heart and lungs sounds: normal Abdomen: Gravid, non-tender to palpation. Cephalic presentation Extremities: No edema External Heart Rate FHR baseline 145 bpm with moderate variability and accelerations, no deceleration Uterine : soft and non tender to palpation Contractions: every 2-3 min Tracing Category 1 Monitoring Method Monitoring Method: External Heart Rate Heart Rate Baseline: 145 Heart Rate Variability: Moderate Presence of FHR Accelerations: Yes Presence of FHR Decelerations: No Changes in Trends of Patterns: No Are all 5 Components of the FH: Yes Contractions Contractions Frequency: Other Duration of Contraction: 90 Contractions Intensity: Moderate Contractions Resting Tone: Relaxed Membranes Membranes: Ruptured Amniotic Fluid Color: Clear, Bloody Vaginal Exam Vag Exam Deferred: No Vaginal Exam Dilation: 5 Vaginal Exam Effacement: 80 Vaginal Exam Station: -1 Vaginal Exam Presentation: VTX Vaginal Exam Show: Moderate Medications Medications - Pitocin: Yes Medication - Epidural: Yes Lab Results Lab Results Vital Signs Date Time Temp Pulse Resp B/P (MAP) Pulse Ox O2 Delivery O2 Flow Rate FiO2 05/16/25 16:22 109/55 Current Medications Medications (Trade) Dose Ordered Sig/Dolly Start Time Stop Time Status Last Admin Dose Admin Lactated Ringer's 1,000 ml @ 1,000 mls/hr Q1H ONCE 05/15/25 09:00 05/15/25 09:59 DC 05/15/25 09:52 1,000 MLS/HR Lactated Ringer's 1,000 ml @ 125 mls/hr Q8H 05/15/25 11:00 05/17/25 00:43 125 MLS/HR Witbill Lucasel (Tucks) 1 pad PRN PRN 05/15/25 11:00 05/15/25 12:30 1 PAD Sodium Lauryl Sulfate (Phisoderm) 240 ml PRN PRN 05/15/25 11:00 05/15/25 12:30 240 ML Benzocaine (Dermoplast) 1 applic PRN PRN 05/15/25 11:00 05/15/25 12:30 1 APPLIC Butorphanol Tartrate (Stadol Injection) 1 mg Q4HPRN PRN 05/15/25 11:00 Butorphanol Tartrate (Stadol Injection) 2 mg Q4HPRN PRN 05/15/25 11:00 Lidocaine HCl (Xylocaine) 20 ml ONCE PRN 05/15/25 11:00 Oxytocin 500 ml @ 999 mls/hr Q31M ONCE 05/15/25 11:00 05/15/25 11:30 DC Oxytocin 500 ml @ 125 mls/hr Q4H ONCE 05/15/25 11:30 05/15/25 15:29 DC Misoprostol (Cytotec) 50 mcg Q4HPRN PRN 05/15/25 12:15 05/16/25 01:21 50 MCG Naloxone HCl (Narcan) 0.2 mg PRN ONCE 05/16/25 07:30 05/16/25 07:32 DC Ephedrine Sulfate (ePHEDrine SULFATE) 10 mg PRN ONCE 05/16/25 07:30 05/16/25 07:32 DC Fentanyl Citrate 100 mcg ONCE ONCE 05/16/25 07:30 05/16/25 07:32 DC 05/16/25 16:22 100 MCG Oxytocin 1,000 ml @ 6 ml/hr Q24H 05/16/25 20:45 05/16/25 20:46 6 ML/HR Laboratory Tests Test 05/15/25 11:06 05/15/25 11:00 Range/Units White Blood Count 9.9 4.4-10.8 10^3/uL Red Blood Count 4.86 4.0-5.20 10^6/uL Hemoglobin 15.1 12.2-16.2 g/dL Hematocrit 43.6 36.0-46.0 % Mean Corpuscular Volume 89.6 80.0-100.0 fL Mean Corpuscular Hemoglobin 31.2 28.0-32.0 pg Mean Corpuscular Hemoglobin Concent 34.8 32.0-36.0 g/dL Red Cell Distribution Width 14.3 11.8-14.3 % Platelet Count 131 L 140-450 10^3/uL Mean Platelet Volume 9.7 6.9-10.8 fL Neutrophils (%) (Auto) 71.0 37.0-80.0 % Lymphocytes (%) (Auto) 21.6 10.0-50.0 % Monocytes (%) (Auto) 6.6 0.0-12.0 % Eosinophils (%) (Auto) 0.3 0.0-7.0 % Basophils (%) (Auto) 0.5 0.0-2.0 % Neutrophils # (Auto) 7.0 1.6-8.6 10 ^3/uL Lymphocytes # (Auto) 2.1 0.4-5.4 10 ^3/uL Monocytes # (Auto) 0.6 0-1.3 10 ^3/uL Eosinophils # (Auto) 0 0-0.8 10 ^3/uL Basophils # (Auto) 0.1 0-0.2 10 ^3/uL Nucleated Red Blood Cells 0.1 % Prothrombin Time 9.6 9.3-11.8 sec Prothrombin Time INR 0.90 0.9-1.15 Activated Partial Thromboplast Time 27.6 24.5-34.5 SEC Sodium Level 136 136-145 mmol/L Potassium Level 3.5 3.5-5.1 mmol/L Chloride Level 105 98-107 mmol/L Carbon Dioxide Level 22 20-31 mmol/L Anion Gap 9 5-15 Blood Urea Nitrogen < 5 L 9-23 mg/dL Creatinine 0.54 L 0.550-1.02 mg/dL Glomerular Filtration Rate Calc 128 >90 mL/min BUN/Creatinine Ratio 9.3 L 10.0-20.0 Serum Glucose 73 L 74-106 mg/dL Calcium Level 9.3 8.7-10.4 mg/dL Total Bilirubin 0.5 0.2-1.0 mg/dL Aspartate Amino Transferase (AST) 18 13-40 U/L Alanine Aminotransferase (ALT) 13 7-40 U/L Alkaline Phosphatase 221 H 46-116 U/L Total Protein 7.1 5.7-8.2 g/dL Albumin 4.1 3.2-4.8 g/dL Treponema pallidum Antibody Non-reactive Negative Hepatitis C Antibody Negative Negative Urine Color Yellow Yellow Urine Clarity Turbid H Clear Urine pH 5.5 5.0-9.0 Urine Specific [place] 1.024 1.001-1.035 Urine Protein Trace H Negative Urine Ketones Negative Negative Urine Blood Negative Negative /uL Urine Nitrite Negative Negative Urine Bilirubin Negative Negative Urine Urobilinogen Normal Negative mg/dL Urine Leukocyte Esterase 3+ Negative /uL Urine RBC 8 0 - 4 /hpf Urine Microscopic WBC 61 H 0-5 /HPF Urine Squamous Epithelial Cells Few <5 /hpf Urine Bacteria Few H None Seen /hpf Urine Mucus Few None Seen Urine Glucose Normal Normal mg/dL Urine Opiates Screen Neg NEGATIVE Urine Fentanyl Screen Neg NEGATIVE Urine Barbiturates Screen Neg NEGATIVE Urine Phencyclidine Screen Neg NEGATIVE Urine Amphetamines Screen Neg NEGATIVE Urine Benzodiazepines Screen Neg NEGATIVE Urine Cocaine Screen Neg NEGATIVE Urine Cannabinoids Screen Neg NEGATIVE Assessment Assessment ASSESSMENT: 30 y/o 39w2d [facility] Admitted for IOL for Oligohydramnios Received Misoprostol X4 CRB for Induction method Epidural for pain management Pitocin induction started per protocol Currently 8 mu/min Bedside RN informed patient reporting of LOF Labor Relations Analyst at beside 0030 AROM of [place] @ 0040 moderate clear fluid noted SVE 5/-1 Plan Plan Plan of care discussed with Patient and partner / family Risk associated with ROM, including risk infection No digital exam unless deemed necessary Process, Risks, benefits, of available management options discussed, Internal monitoring of [facility] & T, amnioinfusion etc only when indicated Informed Consent obtained Consent for possible blood transfusion obtained. All questions answered. Plan discussed with: Patient, Spouse, Other Plan discussed with: Patient, Spouse, Other (Mother of patient ) Visit Coding OBGYN Date of Service: May 17, 2025 Billing Provider: ALEX VERNON CNM LEASE BROKER Common Visit Codes: [id number] INP/OBS CARE (HIGH) ALEX VERNONWAec 2024 00:59
[2025-05-17] MEDS: D5W/LACTATED RINGERS 1,000 ML IV SCH (01:22)
[2025-05-17] MEDS: ROPIVACAINE HCL 100 ML ONE ×2 (01:26→08:51)
--- NOTE | 2025-05-17 07:12 | DVHPN2 ---
CNM Labor Progress Note Date and Time Seen Date Seen: May 17, 2025 Time Seen: 06:50 Subjective Patient reports: Other Subjective Comment Rounding note 05/17/2025 @ 0650 30 y/o (0,0,0,0,) IUP @ 39 w2d LMP: 08/15/2024 EDC: 05/22/2025 Patient is an IOL for Oligohydramnios JOSE JUAN 05/15/25 4.9 CM Induction of labor Received Misoprostol 50 mcg X4 dose Cervical ripening balloon placed and then D/C Patient received and epidural in latent labor due to pain associated with CRB Pitocin Induction started currently 8 mu/min Amniotomy @ 0040 SVE by Charge and RN this morning 0500 CX 690/0 Objective Vital Signs Vital Signs Date Time Temp Pulse Resp B/P (MAP) Pulse Ox O2 Delivery O2 Flow Rate FiO2 05/16/25 16:22 109/55 Physical Exam: A&O x3, NAD, well groomed. pleasant. Appropriate and normal mood and affect Respiration unlabored Heart and lungs sounds: normal Abdomen: Gravid, non-tender to palpation. Cephalic presentation Extremities: No edema External Heart Rate FHR baseline 145 bpm with moderate variability and accelerations, no deceleration Uterine : soft and non tender to palpation Contractions: every 2-3 min Tracing Category 1 with occasional category 2 Monitoring Method Monitoring Method: External Heart Rate Heart Rate Baseline: 145 Heart Rate Variability: Moderate Presence of FHR Accelerations: No Presence of FHR Decelerations: No Changes in Trends of Patterns: Yes Are all 5 Components of the FH: No Contractions Contractions Frequency: Other Duration of Contraction: 3 Contractions Intensity: Moderate Contractions Resting Tone: Relaxed Membranes Amniotic Fluid Color: Clear Vaginal Exam Vag Exam Deferred: No Vaginal Exam Dilation: 8 Vaginal Exam Effacement: 90 Vaginal Exam Station: 0 Vaginal Exam Presentation: VTX Vaginal Exam Show: Moderate Medications Medications - Pitocin: Yes Medication - Epidural: Yes Lab Results Lab Results Vital Signs Date Time Temp Pulse Resp B/P (MAP) Pulse Ox O2 Delivery O2 Flow Rate FiO2 05/16/25 16:22 109/55 Current Medications Medications (Trade) Dose Ordered Sig/Dolly Start Time Stop Time Status Last Admin Dose Admin Lactated Ringer's 1,000 ml @ 1,000 mls/hr Q1H ONCE 05/15/25 09:00 05/15/25 09:59 DC 05/15/25 09:52 1,000 MLS/HR Lactated Ringer's 1,000 ml @ 125 mls/hr Q8H 05/15/25 11:00 05/17/25 00:43 125 MLS/HR Quinn Soni (Tucks) 1 pad PRN PRN 05/15/25 11:00 05/15/25 12:30 1 PAD Sodium Lauryl Sulfate (Phisoderm) 240 ml PRN PRN 05/15/25 11:00 05/15/25 12:30 240 ML Benzocaine (Dermoplast) 1 applic PRN PRN 05/15/25 11:00 05/15/25 12:30 1 APPLIC Butorphanol Tartrate (Stadol Injection) 1 mg Q4HPRN PRN 05/15/25 11:00 Butorphanol Tartrate (Stadol Injection) 2 mg Q4HPRN PRN 05/15/25 11:00 Lidocaine HCl (Xylocaine) 20 ml ONCE PRN 05/15/25 11:00 Oxytocin 500 ml @ 999 mls/hr Q31M ONCE 05/15/25 11:00 05/15/25 11:30 DC Oxytocin 500 ml @ 125 mls/hr Q4H ONCE 05/15/25 11:30 05/15/25 15:29 DC Misoprostol (Cytotec) 50 mcg Q4HPRN PRN 05/15/25 12:15 05/16/25 01:21 50 MCG Naloxone HCl (Narcan) 0.2 mg PRN ONCE 05/16/25 07:30 05/16/25 07:32 DC Ephedrine Sulfate (ePHEDrine SULFATE) 10 mg PRN ONCE 05/16/25 07:30 05/16/25 07:32 DC Fentanyl Citrate 100 mcg ONCE ONCE 05/16/25 07:30 05/16/25 07:32 DC 05/16/25 16:22 100 MCG Oxytocin 1,000 ml @ 6 ml/hr Q24H 05/16/25 20:45 05/16/25 20:46 6 ML/HR Dextrose/Lactated Ringer's 1,000 ml @ 150 mls/hr Q6H40M 05/17/25 01:15 05/17/25 01:22 150 MLS/HR Laboratory Tests Test 05/15/25 11:06 05/15/25 11:00 Range/Units White Blood Count 9.9 4.4-10.8 10^3/uL Red Blood Count 4.86 4.0-5.20 10^6/uL Hemoglobin 15.1 12.2-16.2 g/dL Hematocrit 43.6 36.0-46.0 % Mean Corpuscular Volume 89.6 80.0-100.0 fL Mean Corpuscular Hemoglobin 31.2 28.0-32.0 pg Mean Corpuscular Hemoglobin Concent 34.8 32.0-36.0 g/dL Red Cell Distribution Width 14.3 11.8-14.3 % Platelet Count 131 L 140-450 10^3/uL Mean Platelet Volume 9.7 6.9-10.8 fL Neutrophils (%) (Auto) 71.0 37.0-80.0 % Lymphocytes (%) (Auto) 21.6 10.0-50.0 % Monocytes (%) (Auto) 6.6 0.0-12.0 % Eosinophils (%) (Auto) 0.3 0.0-7.0 % Basophils (%) (Auto) 0.5 0.0-2.0 % Neutrophils # (Auto) 7.0 1.6-8.6 10 ^3/uL Lymphocytes # (Auto) 2.1 0.4-5.4 10 ^3/uL Monocytes # (Auto) 0.6 0-1.3 10 ^3/uL Eosinophils # (Auto) 0 0-0.8 10 ^3/uL Basophils # (Auto) 0.1 0-0.2 10 ^3/uL Nucleated Red Blood Cells 0.1 % Prothrombin Time 9.6 9.3-11.8 sec Prothrombin Time INR 0.90 0.9-1.15 Activated Partial Thromboplast Time 27.6 24.5-34.5 SEC Sodium Level 136 136-145 mmol/L Potassium Level 3.5 3.5-5.1 mmol/L Chloride Level 105 98-107 mmol/L Carbon Dioxide Level 22 20-31 mmol/L Anion Gap 9 5-15 Blood Urea Nitrogen < 5 L 9-23 mg/dL Creatinine 0.54 L 0.550-1.02 mg/dL Glomerular Filtration Rate Calc 128 >90 mL/min BUN/Creatinine Ratio 9.3 L 10.0-20.0 Serum Glucose 73 L 74-106 mg/dL Calcium Level 9.3 8.7-10.4 mg/dL Total Bilirubin 0.5 0.2-1.0 mg/dL Aspartate Amino Transferase (AST) 18 13-40 U/L Alanine Aminotransferase (ALT) 13 7-40 U/L Alkaline Phosphatase 221 H 46-116 U/L Total Protein 7.1 5.7-8.2 g/dL Albumin 4.1 3.2-4.8 g/dL Treponema pallidum Antibody Non-reactive Negative Hepatitis C Antibody Negative Negative Urine Color Yellow Yellow Urine Clarity Turbid H Clear Urine pH 5.5 5.0-9.0 Urine Specific [place] 1.024 1.001-1.035 Urine Protein Trace H Negative Urine Ketones Negative Negative Urine Blood Negative Negative /uL Urine Nitrite Negative Negative Urine Bilirubin Negative Negative Urine Urobilinogen Normal Negative mg/dL Urine Leukocyte Esterase 3+ Negative /uL Urine RBC 8 0 - 4 /hpf Urine Microscopic WBC 61 H 0-5 /HPF Urine Squamous Epithelial Cells Few <5 /hpf Urine Bacteria Few H None Seen /hpf Urine Mucus Few None Seen Urine Glucose Normal Normal mg/dL Urine Opiates Screen Neg NEGATIVE Urine Fentanyl Screen Neg NEGATIVE Urine Barbiturates Screen Neg NEGATIVE Urine Phencyclidine Screen Neg NEGATIVE Urine Amphetamines Screen Neg NEGATIVE Urine Benzodiazepines Screen Neg NEGATIVE Urine Cocaine Screen Neg NEGATIVE Urine Cannabinoids Screen Neg NEGATIVE Assessment Assessment ASSESSMENT: 30 y/[facility] 39w2d [facility] Ad[facility] for [facility] for Oligohydramnios Received Misoprostol X4 CRB for Induction method Epidural for pain management Pitocin induction started per protocol Currently 8 mu/min AROM of [place]bag @ 0040 moderate clear fluid noted At bedside @ 0650 SVE done CX 890/0 with moderate bloody Show IUPC placed for evaluation of contractions continue to place patient lema and rotate Restart D5LR and may have jello for diet Placement of IUPS reactive tracing Accels 15 bpm X 15 bpm Continue with P.O.C Anticipate Vaginal Delivery Plan Plan Plan Plan of care discussed with Patient and partner / family Risk associated with ROM, including risk infection Process, Risks, benefits, of available management options discussed, Internal monitoring of UCs & FHT, amnioinfusion etc only when indicated Informed Consent obtained Consent for possible blood transfusion obtained. All questions answered. Plan discussed with: Patient, Spouse, Other Plan discussed with: Patient, Spouse, Other (Mother of patient ) Plan discussed with: Patient, Spouse, Other (Mother of Patient ) Visit Coding OBGYN Date of Service: May 17, 2025 Billing Provider: ALEX VERNON CNM WIRE INSULATOR Common Visit Codes: [id number] [facility]BS CARE (LOW) [facility]
[2025-05-17] MEDS ORDERED: METHYLERGONOVINE MALEATE 0.2 MG/ML AMP IM ONE (09:43)
[2025-05-17] MEDS: LACT. RINGERS/OXYTOCIN 20UNITS 500 ML IV ONE ×2 (09:54→10:12)
[2025-05-17] MEDS: METHYLERGONOVINE MALEATE 0.2 MG/ML AMP IM STA (09:57)
--- NOTE | 2025-05-17 10:19 | LDN2 ---
Labor and Delivery Note Date 05/17/25 Age 30 2 Para 1 AB 1 EDC 12-30 EGA 39wks Diagnosis iol for oligo Vaginal Delivery: VTX Vacuum Assisted: No Placenta: Spontaneous Sex: Female Apgars 8-9 Nuchal Cord Transected: No Amniotic Fluid: Clear Anesthesia epidural Episiotomy: Yes Extension: Yes (midline epis with 2nd deg perineal lac) Repaired with 2-0 chromic EBL 500ml Labs Blood Bank 05/15/25 11:06: Blood Type A POSITIVE Complications none Conditions stable Comments/Significant Med Annamarie spec exam no cxal lac Visit Coding OBGYN Date of Service: May 17, 2025 Billing Provider: NOREEN STROUD DO BOOM SUPERVISOR Common Visit Codes: [id number] OBS CARE (HIGH) BOOM SUPERVISOR Procedure Codes: [id number] DELIVERY ONLY NOREEN STROUD DO May 17, 2025 10:19
[2025-05-17] MEDS ORDERED: ONDANSETRON ODT 4 MG TAB PO PRN (10:30)
[2025-05-17] MEDS: ceFAZolin 2 GM/D5W50ml 50 ML IV SCH (10:52)
[2025-05-17 12:45] VITALS: PULSE 86; RESP 18
[2025-05-17 15:30] VITALS: BP 132/78; PULSE 86; RESP 18; TEMP 98.3; O2SAT 95
[2025-05-17] MEDS: IBUPROFEN 600 MG TAB PO PRN (16:24)
[2025-05-17] MEDS ORDERED: TRANEXAMIC ACID 1,000 mg/10ml INJ VIAL IV ONE (17:04)
[2025-05-17] MEDS: ACETAMINOPHEN 325 MG TAB PO PRN (18:55)
[2025-05-17 19:00] VITALS: BP 108/68; PULSE 109; RESP 18; TEMP 100.3; O2SAT 100
[2025-05-17 19:30] VITALS: BP 101/55; PULSE 67; RESP 18; TEMP 98; O2SAT 96
[2025-05-17 19:42] VITALS: TEMP 99
[2025-05-17] MEDS: DOCUSATE SOD 100 MG CAP PO SCH (22:35)
[2025-05-17 22:57] VITALS: BP 98/48; PULSE 78; RESP 18; TEMP 97.4; O2SAT 100
[2025-05-18 03:13] VITALS: BP 98/48; PULSE 78; RESP 18; TEMP 97.4; O2SAT 100
--- NOTE | 2025-05-18 04:44 | DVHDS2 ---
Discharge Summary Discharge Summary Date of Admission: May 16, 2025 Date of Discharge: May 18, 2025 Discharge Diagnosis: Normal Spontaneous Vaginal Delivery Hospital Course P Note. Subjective 30 y/o now ppd#1 s/p doing well. Delivery of viable infant Female 05/17/2025 Has midline episotomy with a second degree laceration that was repaired EBL 500 ml Received post delivery Pitocin / TXA / Methergine Prophylactically for bleeding Lochia minimal Tolerating regular diet well. Ambulating and voiding well w/o feeling lightheaded or dizzy. Passing flatus but no BM yet. Breast feeding. Contraceptive plan: Unknown Desires and requests to be discharged home today Objective Vital Signs Date Time Temp Pulse Resp B/P (MAP) Pulse Ox O2 Delivery O2 Flow Rate FiO2 05/18/25 03:13 97.4 78 18 98/48 (65) 100 97.4 I & O 05/18/25 07:00 Output Total 800 ml Balance -800 ml Output Urine Total 300 ml Stool Total 500 ml # Bowel Movements 4 Current Medications Medications (Trade) Dose Ordered Sig/Dolly Start Time Stop Time Status Last Admin Dose Admin Lactated Ringer's 1,000 ml @ 1,000 mls/hr Q1H ONCE 05/15/25 09:00 05/15/25 09:59 DC 05/15/25 09:52 1,000 MLS/HR Lactated Ringer's 1,000 ml @ 125 mls/hr Q8H 05/15/25 11:00 05/17/25 10:17 DC 05/17/25 00:43 125 MLS/HR [place] Nae (Tucks) 1 pad PRN PRN 05/15/25 11:00 05/17/25 18:54 1 PAD Sodium Lauryl Sulfate (Phisoderm) 240 ml PRN PRN 05/15/25 11:00 05/15/25 12:30 240 ML Benzocaine (Dermoplast) 1 applic PRN PRN 05/15/25 11:00 05/17/25 18:55 1 APPLIC Oxytocin 500 ml @ 999 mls/hr Q31M ONCE 05/15/25 11:00 05/15/25 11:30 DC 05/17/25 09:54 999 MLS/HR Oxytocin 500 ml @ 125 mls/hr Q4H ONCE 05/15/25 11:30 05/15/25 15:29 DC 05/17/25 10:12 125 MLS/HR Misoprostol (Cytotec) 50 mcg Q4HPRN PRN 05/15/25 12:15 05/17/25 10:18 DC 05/16/25 01:21 50 MCG Naloxone HCl (Narcan) 0.2 mg PRN ONCE 05/16/25 07:30 05/16/25 07:32 DC Ephedrine Sulfate (ePHEDrine SULFATE) 10 mg PRN ONCE 05/16/25 07:30 05/16/25 07:32 DC Fentanyl Citrate 100 mcg ONCE ONCE 05/16/25 07:30 05/16/25 07:32 DC 05/16/25 16:22 100 MCG Oxytocin 1,000 ml @ 6 ml/hr Q24H 05/16/25 20:45 05/16/25 20:46 6 ML/HR Dextrose/Lactated Ringer's 1,000 ml @ 150 mls/hr Q6H40M 05/17/25 01:15 05/17/25 10:18 DC 05/17/25 01:22 150 MLS/HR Methylergonovine Maleate (Methergine) 0.2 mg ONCE STAT 05/17/25 09:43 05/17/25 09:50 DC 05/17/25 09:57 0.2 MG Cefazolin Sodium/ Dextrose 50 ml @ 50 mls/hr Q8HR 05/17/25 10:00 05/17/25 18:55 50 MLS/HR Ibuprofen (Motrin Tablet) 600 mg Q6HP PRN 05/17/25 10:30 05/17/25 16:24 600 MG Acetaminophen (Tylenol Tablet) 650 mg Q4HP PRN 05/17/25 10:30 05/17/25 18:55 650 MG Ondansetron HCl (Zofran Po) 4 mg Q4HPRN PRN 05/17/25 10:30 Docusate Sodium (Colace Capsule) 200 mg HS 05/17/25 22:00 05/17/25 22:35 200 MG Laboratory Tests Test 05/15/25 11:06 05/15/25 11:00 Range/Units White Blood Count 9.9 4.4-10.8 10^3/uL Red Blood Count 4.86 4.0-5.20 10^6/uL Hemoglobin 15.1 12.2-16.2 g/dL Hematocrit 43.6 36.0-46.0 % Mean Corpuscular Volume 89.6 80.0-100.0 fL Mean Corpuscular Hemoglobin 31.2 28.0-32.0 pg Mean Corpuscular Hemoglobin Concent 34.8 32.0-36.0 g/dL Red Cell Distribution Width 14.3 11.8-14.3 % Platelet Count 131 L 140-450 10^3/uL Mean Platelet Volume 9.7 6.9-10.8 fL Neutrophils (%) (Auto) 71.0 37.0-80.0 % Lymphocytes (%) (Auto) 21.6 10.0-50.0 % Monocytes (%) (Auto) 6.6 0.0-12.0 % Eosinophils (%) (Auto) 0.3 0.0-7.0 % Basophils (%) (Auto) 0.5 0.0-2.0 % Neutrophils # (Auto) 7.0 1.6-8.6 10 ^3/uL Lymphocytes # (Auto) 2.1 0.4-5.4 10 ^3/uL Monocytes # (Auto) 0.6 0-1.3 10 ^3/uL Eosinophils # (Auto) 0 0-0.8 10 ^3/uL Basophils # (Auto) 0.1 0-0.2 10 ^3/uL Nucleated Red Blood Cells 0.1 % Prothrombin Time 9.6 9.3-11.8 sec Prothrombin Time INR 0.90 0.9-1.15 Activated Partial Thromboplast Time 27.6 24.5-34.5 SEC Sodium Level 136 136-145 mmol/L Potassium Level 3.5 3.5-5.1 mmol/L Chloride Level 105 98-107 mmol/L Carbon Dioxide Level 22 20-31 mmol/L Anion Gap 9 5-15 Blood Urea Nitrogen < 5 L 9-23 mg/dL Creatinine 0.54 L 0.550-1.02 mg/dL Glomerular Filtration Rate Calc 128 >90 mL/min BUN/Creatinine Ratio 9.3 L 10.0-20.0 Serum Glucose 73 L 74-106 mg/dL Calcium Level 9.3 8.7-10.4 mg/dL Total Bilirubin 0.5 0.2-1.0 mg/dL Aspartate Amino Transferase (AST) 18 13-40 U/L Alanine Aminotransferase (ALT) 13 7-40 U/L Alkaline Phosphatase 221 H 46-116 U/L Total Protein 7.1 5.7-8.2 g/dL Albumin 4.1 3.2-4.8 g/dL Treponema pallidum Antibody Non-reactive Negative Hepatitis C Antibody Negative Negative Urine Color Yellow Yellow Urine Clarity Turbid H Clear Urine pH 5.5 5.0-9.0 Urine Specific [place] 1.024 1.001-1.035 Urine Protein Trace H Negative Urine Ketones Negative Negative Urine Blood Negative Negative /uL Urine Nitrite Negative Negative Urine Bilirubin Negative Negative Urine Urobilinogen Normal Negative mg/dL Urine Leukocyte Esterase 3+ Negative /uL Urine RBC 8 0 - 4 /hpf Urine Microscopic WBC 61 H 0-5 /HPF Urine Squamous Epithelial Cells Few <5 /hpf Urine Bacteria Few H None Seen /hpf Urine Mucus Few None Seen Urine Glucose Normal Normal mg/dL Urine Opiates Screen Neg NEGATIVE Urine Fentanyl Screen Neg NEGATIVE Urine Barbiturates Screen Neg NEGATIVE Urine Phencyclidine Screen Neg NEGATIVE Urine Amphetamines Screen Neg NEGATIVE Urine Benzodiazepines Screen Neg NEGATIVE Urine Cocaine Screen Neg NEGATIVE Urine Cannabinoids Screen Neg NEGATIVE Assessment/ Plan Blood Type: Rh:A Positive Breast feeding Rubella Immune Pain control with oral medications Bowel regimen: Increase fluid intake and fiber in diet, Laxative PRN PP BCM Plan: Unknown Discharge plan: May discharge home later today if condition remains stable Daily assessment findings will determine when to discharge Physical exam on Discharge Afebrile, Chest: heart and lung sounds normal. Breasts: Nipples intact w/o cracks or soreness Abdomen: normal BS, soft, non-tender, no rebound or guarding, Fundus firm @ Umbilicus -1, lochia minimal Perineum:- no edema, or erythema, Extremities: no edema or tenderness Lochia - minimal Discharge Disposition: Home Discharge Instructions Discharge Information / Summary Diet: Routine regular diet rich in fiber, protein, iron and vitamin C with adequate fluid intake. Activity: Unrestricted. Advance as tolerated. Balance activities with rest periods No heavy lifting, pushing or straining. Pelvic rest x 6weeks Follow up with OB Provider in 1 week Medications Medications: Ibuprofen 600mg every 6 hours as needed for pain. Continue Vitamin and iron Follow up Follow up with OB Provider in 1 week Instructions: self care instructions given. emergency signs and symptoms including but not limited to pre-eclampsia precautions and signs of infection, PPH & of PPD reviewed with patient. Follow up with OB Provider in 1 week Discharge Care Plan Problem Pain, Risk for injury/Safety, Increase in fluid intake Goals Pain relieved Adequate fluid volume To perform ADL's w/ help Instructions Take Rx medications See pt D/C handouts Risk factors Causes of fluid excess Preventing ulcer developm Establish goals Visit Coding OBGYN Date of Service: May 18, 2025 Billing Provider: ALEX VERNON CNM HEDIS REVIEW NURSE Common Visit Codes: [id number] INP/OBS CARE (HIGH), [id number] DISCH DAY >30MIN [facility]
[2025-05-18 07:00] VITALS: BP 108/64; PULSE 82; RESP 16; TEMP 98.2; O2SAT 98
== END 2025-05-18 12:34 | disposition home or self-care (01) | DRG 807 ==
LOC: LDRP 08:48 → UNDOADMOB 08:48 → LDRP 08:57 → INTOOBSV 10:28 → OBSVTOIN 10:28
PROVIDERS: ADMIT Obstetrics & Gynecology; ATTEND Obstetrics & Gynecology
PROC: 10E0XZZ Delivery of Products of Conception, External Approach (ICD-10-PCS; principal; 2025-05-17)
PROC: 0KQM0ZZ Repair Perineum Muscle, Open Approach (ICD-10-PCS; 2025-05-17)
PROC: 0W8NXZZ Division of Female Perineum, External Approach (ICD-10-PCS; 2025-05-17)
PROC: 3E0R3BZ Introduction of Anesthetic Agent into Spinal Canal, Percutaneous Approach (ICD-10-PCS; 2025-05-17)
PROC: 00HU33Z Insertion of Infusion Device into Spinal Canal, Percutaneous Approach (ICD-10-PCS; 2025-05-17)
DX: O41.03X0 Oligohydramnios, third trimester, not applicable or unspecified (principal); Z37.0 Single live birth; O70.1 Second degree perineal laceration during delivery; Z3A.39 39 weeks gestation of pregnancy
CPT/HCPCS: 36415; 59025; 59409; 62282; 76819; 80053; 80307; 81001; 81002; 85025; 85610; 85730; 86780; 86803; 86850; 86900; 86901; 94760; 96360; 96361; 96366; A4344; G0378; J2590